=== PATIENT | male | born 1945 | race Caucasian/White ===

== ENCOUNTER 2025-07-05 14:41 | Outpatient (CLI) | payer BC, MEDICARE ==
--- NOTE | 2025-07-05 17:53 | RADIOLOGY REPORT ---
EXAM: MR MRI LOWER EXTREMITY RIGHT HISTORY: R KNEE PAIN COMPARISON: None TECHNIQUE: Multiplanar, multisequence imaging of the right knee was performed without contrast FINDINGS: MEDIAL COMPARTMENT: Question slight thickening of the posterior root of the medial meniscus which may reflect underlying tearing. No focal chondrosis or subchondral edema. LATERAL COMPARTMENT: Longitudinal horizontal type tear of the central body of the lateral meniscus extending to the peripheral 1/3 with subsequent lateral meniscal extrusion. Suspected tear extension into the posterior root and lateral meniscus posterior root attachment may be insufficient. Subchondral edema of the posterolateral tibial plateau and lateral femoral condyle PATELLOFEMORAL COMPARTMENT: Trace subchondral edema of the lateral patellar facet with overlying chondrosis. CRUCIATE LIGAMENTS: Thickening with intermediate signal intensity of the anterior cruciate ligament correlate for mucoid degeneration versus sequelae of underlying injury. Posterior cruciate ligament is grossly intact. Insertional cysts of the anterior cruciate ligament origin of the intercondylar notch MEDIAL SUPPORTING STRUCTURES: Intact medial collateral ligament. LATERAL SUPPORTING STRUCTURES: Intact iliotibial band, lateral capsular ligament, fibular collateral ligament, popliteus, and biceps femoris tendons EXTENSOR MECHANISM: Intact JOINT SPACE/FLUID: Medium to large knee joint effusion with the areas of suspected synovitis BONES: No acute fracture, osseous contusion, or aggressive focal osseous lesion MUSCLES: Feathery muscle edema insinuating along the intermuscular fascial plane of the posterior margin of the proximal soleus, posterior to the popliteus, along the margins of the gastrocnemius and posterior margin of the vastus lateralis and medialis muscle bellies. NEUROVASCULAR: Unremarkable OTHER: None IMPRESSION: 1. Longitudinal horizontal type tear of the central body of the lateral meniscus extending to the peripheral 1/3 with subsequent lateral meniscal extrusion. 2. Suspected tear extension into the posterior root and lateral meniscus posterior root attachment may be insufficient. 3. Thickening with intermediate signal intensity of the anterior cruciate ligament correlate for mucoid degeneration versus sequelae of underlying injury. 4. Medium to large knee joint effusion with the areas of suspected synovitis. 5. Feathery muscle edema insinuating along the intermuscular fascial plane of the posterior margin of the proximal soleus, posterior to the popliteus, along the margins of the gastrocnemius and posterior margin of the vastus lateralis and medialis muscle bellies. 6. Findings may reflect sequelae of muscle strain versus myositis.
== END 2025-07-05 23:59 | disposition home or self-care (01) ==
LOC: MRI 14:41
PROVIDERS: ATTEND Family Medicine
DX: S83.281A Other tear of lateral meniscus, current injury, right knee, initial encounter (principal); M25.561 Pain in right knee; X58.XXXA Exposure to other specified factors, initial encounter; Y93.89 Activity, other specified; Y92.89 Other specified places as the place of occurrence of the external cause; Y99.8 Other external cause status; M25.461 Effusion, right knee; M65.861 Other synovitis and tenosynovitis, right lower leg
CPT/HCPCS: 73721